=== PATIENT | female | born 1985 | race Caucasian/White ===

== ENCOUNTER → 2022-03-11 | Outpatient (CLI) | payer OTHER ==
[~2022-03-11] MED LIST: BUPR15TA PO; SYNT50TA PO; VENL37.598 PO; VENL75CA47 PO
== END ==
LOC: M LABSMTC 11:06
PROVIDERS: ATTEND Anesthesiology
DX: Z01.812 Encounter for preprocedural laboratory examination (principal); Z20.822 Contact with and (suspected) exposure to COVID-19

== ENCOUNTER 2022-03-13 09:57 | Day surgery (SDC) | payer OTHER ==
[~2022-03-13] VITALS: Ht 165.1 cm; Wt 70.5 kg
[~2022-03-13 09:57] MED LIST changes: +ACETAMINOPHEN 650 MG SUPP PR ONE; +LIDOCAINE 2% 100MG/5ML SDV (FOR ANES.) As Ordered ONE; +NS 1,000 ML IV ONE; +NS 1,000 ML IV SCH
[2022-03-13 10:36] LABS: HEMOGLOBIN 13.8 g/dl (12.0-15.5); MEAN CORPUSCULAR HGB CONC 32.1 g/dl (32.0-36.5); MEAN CORPUSCULAR VOLUME 90.3 fl (80.0-96.0); PLATELET COUNT, AUTOMATED 182 10^3/uL (150-450); RED BLOOD COUNT 4.76 10^6/uL (4.00-5.40); WHITE BLOOD COUNT 5.3 10^3/uL (4.0-10.0)
[2022-03-13] MEDS ORDERED: LR 1,000 ML IV SCH ×2 (11:00→13:15)
[2022-03-13] MEDS ORDERED: propofoL 200 MG/20 ML VIAL As Ordered ONE (11:06)
[2022-03-13] MEDS ORDERED: dexameTHASONE 4 MG/ML 1ML VIAL (J1100 PER 1MG) As Ordered ONE (11:07)
[2022-03-13] MEDS ORDERED: ONDANSETRON 4MG 2ML VIAL As Ordered ONE (11:07)
[2022-03-13] MEDS ORDERED: fentaNYL 100 MCG/2 ML INJECTION As Ordered ONE (11:07)
[2022-03-13] MEDS ORDERED: MIDAZOLAM INJ 2MG/2ML VIAL (J2250 PER 1MG) As Ordered ONE (11:07)
[2022-03-13 11:18] LABS: BLOOD UREA NITROGEN 13 MG/DL (7-18); CARBON DIOXIDE LEVEL 24 MEQ/L (21-32); CHLORIDE LEVEL 108 MEQ/L (98-107); CREATININE FOR GFR 0.94 MG/DL (0.55-1.30); GLOMERULAR FILTRATION RATE > 60.0 (>60); GLUCOSE, FASTING 90 MG/DL (70-100); HCG, SERUM QUANTITATIVE < 1.0 MIU/ML; POTASSIUM SERUM 4.1 MEQ/L (3.5-5.1); SODIUM LEVEL 138 MEQ/L (136-145)
[2022-03-13] MEDS ORDERED: BUPIVACAINE HCL 0.5% 30ML VIAL As Ordered ONE (11:44)
[2022-03-13] MEDS ORDERED: ACETAMINOPHEN 650 MG SUPP As Ordered ONE (11:44)
[2022-03-13] MEDS ORDERED: METHYLENE BLUE 0.5% (5MG/ML) 10 ML AMP (PROVAYBLUE) As Ordered ONE (11:44)
[2022-03-13] MEDS ORDERED: ROCURONIUM BROMIDE 50 MG/5 ML VIAL As Ordered ONE (11:51)
[2022-03-13] MEDS ORDERED: PHENYLephrine 500MCG 5ML (100MCG/ML) SYRINGE As Ordered ONE (12:41)
[2022-03-13] MEDS ORDERED: KETOROLAC 60MG 2ML VIAL As Ordered ONE (12:56)
[2022-03-13] MEDS ORDERED: SUGAMMADEX SODIUM 500 MG/5 ML VIAL (BRIDION) As Ordered ONE (13:09)
[2022-03-13] MEDS ORDERED: ONDANSETRON 4MG 2ML VIAL IV PRN (13:15)
[2022-03-13] MEDS ORDERED: METOCLOPRAMIDE INJ 10MG/2ML VIAL (J2765 PER 1) IV PRN (13:15)
[2022-03-13] MEDS ORDERED: HYDROMORPHONE HCL 0.5 MG/ 0.5 ML SYRINGE (J1170 PER 1) IV PRN (13:15)
[2022-03-13] MEDS ORDERED: oxyCODONE 5MG TAB PO PRN (13:15)
[2022-03-13] MEDS ORDERED: fentaNYL 100 MCG/2 ML INJECTION IV PRN (13:15)
[2022-03-13 14:45] VITALS: BP 112/57
[2022-03-13] MEDS ORDERED: KETOROLAC 30 MG/ML 1ML VIAL IV SCH (20:00)
== END 2022-03-13 15:13 | disposition home or self-care (01) ==
LOC: M SDC 09:57
PROVIDERS: ATTEND Obstetrics & Gynecology
DX: Z30.2 Encounter for sterilization (principal); Z30.432 Encounter for removal of intrauterine contraceptive device; E03.9 Hypothyroidism, unspecified; F41.9 Anxiety disorder, unspecified; F32.A Depression, unspecified; Z79.899 Other long term (current) drug therapy
CPT/HCPCS: 36415; 58301; 58661; 80048; 84702; 85027; 88300; 88302; J1100; J1885; J2250; J2370; J2405; J3010; Q9968